=== PATIENT | male | born 1940 | race Caucasian/White ===

== ENCOUNTER 2019-07-13 07:41 | Day surgery (SDC) | payer MEDICARE, OTHER ==
[~2019-07-13] VITALS: Ht 165.1 cm; Wt 77.0 kg
[~2019-07-13 07:41] MED LIST: HYDR1TAB94 PO; METO25ER PO; NEBI10 PO; VERA120 PO; Vitamin D2000 UNIT PO; XARELTO20 MG PO
--- NOTE | 2019-07-13 12:05 | NUR ---
CHEST XRAY PT WHEELED DOWN TO RADIOLOGY BY THIS NURSE FOR CHEST X-RAY.
--- NOTE | 2019-07-13 15:57 | NUR ---
DISCHARGE PT REMAINED A&OX3 AND DENIED ANY PAIN DURING RECOVERY. IV DC'D WITH CANULA IN TACT. LEFT UPPER CHEST SITE REMAINS CDI-NO HEMATOMA NOTED. DISCHARGE PAPERWORK GONE OVER WITH PT AND FAMILY. PT AND FAMILY VERBALLY STATED THE UNDERSTANDING OF THE DISCHARGE PAPERWORK AND DENIED ANY QUESTIONS AT THIS TIME. PT DRESSED SELF INDEPENDANTLY AND AMBULATED TO THE RESTROOM SEVERAL TIME WITH A STEADY GAIT. PT WHEELED OUT BY RAEANN Kyle RN.
== END 2019-07-13 15:30 | disposition home or self-care (01) ==
LOC: MHTC 07:41
DX: I49.5 Sick sinus syndrome (principal); I48.21 Permanent atrial fibrillation; E55.9 Vitamin D deficiency, unspecified; I11.9 Hypertensive heart disease without heart failure; Z79.01 Long term (current) use of anticoagulants; Z87.891 Personal history of nicotine dependence
CPT/HCPCS: 33207; 71046; 76937; 99152; 99153; C1786; C1898; J0690; J1644; J2250; J3010; J7030; J7040